=== PATIENT | female | born 1940 | race Caucasian/White ===

== ENCOUNTER 2024-07-16 06:33 | Day surgery (SDC) | payer MEDICARE, SELFPAY ==
[2024-07-16] VITALS (7 sets, daily range): BP systolic 120–152; BP diastolic 55–70; PULSE 73–92; RESP 12–19; TEMP 36.1–36.7; O2SAT 95–100; BMI 24.2
--- NOTE | 2024-07-16 | PATH_ITS ---
[facility] Accession Number: [id number] No. of containers..01 Tissue . 01 Material submitted: . toe - RIGHT 5th TOE MATERIAL . 01 Diagnosis: RIGHT FIFTH TOE MATERIAL, EXCISION: Granulomatous inflammation surrounding basophilic amorphous needle-like material deposition. See comment. MRV 07/18/2024 1524 Local . 01 Comment: Findings are suggestive of gout crystals, however, fresh tissue is needed for definite crystal identification. Clinical correlation is recommended. . 01 Electronically signed: . Marline Montes MD, Pathologist NPI- [id number] . 01 Gross description: . Received in formalin with two patient identifiers and right fifth toe material, is an unoriented ellipse of skin (1.7 x 0.7 x 0.2 cm), and multiple fragments of bone with attached soft tissue (2.2 x 1.7 x 0.3 cm in aggregate). The skin margins are inked blue, and the fragment of skin is serially sectioned into six slices. The specimen is submitted entirely as follows: . A1: Skin fragment tips. A2: Remaining skin fragment. A3: Fragment of bone following decalcification. ([id number]) /MRV 07/17/2024 1703 Local . 01 Pathologist provided ICD-10: M10.071 . 01 CPT . 548868, [id number] Specimen Comment: A courtesy copy of this report has been sent to [facility] Pathology Performed at: [address] [address], [place], [place] [id number] MD Zachary Angel MD Phone: [phone]
--- NOTE | 2024-07-16 | DI.RAD.S_ITS ---
PROCEDURE: XR FOOT RT MIN 3V INDICATIONS: POST OP FOOT TECHNIQUE: 3 views of the foot were acquired. COMPARISON: None. FINDINGS: Bones: 5th digit proximal phalanx subtotal osteotomy. No fractures or dislocations. No suspicious bony lesions. Soft tissues: No tibiotalar joint effusion. Achilles tendon appears normal. No radiopaque foreign body. IMPRESSION: 5th digit proximal phalanx subtotal osteotomy. Dictated by: Jamil Sharma M.D. on 07/16/2024 at 12:14 Approved by: Jamil Sharma M.D. on 07/16/2024 at 12:17
--- NOTE | 2024-07-16 05:57 | PM.PREOP ---
Pre-operative Note Interval Note History & Physical reviewed/Exam performed by Physician: Yes Changes to H&P: No
--- NOTE | 2024-07-16 05:58 | P.HP_ITS ---
History of Present Illness History of Present Illness [place] [facility] [place]: 83 year [place] female here for swollen right fifth toe. She expresses inability to take a decent walk due to discomfort in the toe joint. She describes the joint as being unhappy, bloated, and full of gouty material, which she likens to the appearance of toothpaste or cottage cheese. Ericka would like to proceed with elective surgery to address the issue. She has been informed about the importance of controlling her gout and uric acid levels to prevent recurrence of the issue, especially if the toe is preserved. Patient denies n/v/f/c/sob/cp. [facility] Medical History (Updated 07/12/24 @ 11:06 by Elo Lai RN) Gout Disorder of thyroid gland GERD (gastroesophageal reflux disease) Osteoporosis Arthritis HLD (hyperlipidemia) Kidney disorder HTN (hypertension) Anxiety and depression Meds Home Medications and Allergies Home Medications Medication Instructions Recorded Confirmed Type calcitriol 0.25 mcg capsule 0.25 mcg PO DAILY 07/12/24 07/12/24 History lisinopril 20 mg tablet 20 mg PO DAILY 07/12/24 07/12/24 History metronidazole 0.75 % topical cream 1 applic topical DAILY 07/12/24 07/12/24 History milnacipran 25 mg tablet (Savella) 25 mg PO DAILY 07/12/24 07/12/24 History simvastatin 20 mg tablet 20 mg PO ONCE PM 07/12/24 07/12/24 History Allergies Allergy/AdvReac Type Severity Reaction Status Date / Time codeine Allergy Verified 07/12/24 11:03 iodine Allergy Verified 07/12/24 11:03 Exam Skin Other: Right fifth toe: edematous and pre-ulcerative. Extrem Other: Right fifth toe: Mild tenderness on palpation and rigid hammertoe with bony enlargement. Assessment & Plan Assessment & Plan narrative: 1. 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 Right fifth toe acquired deformity. Patient seen and evaluated. Surgical plan: right fifth toe interphalangeal joint arthrotomy and correction of acquired deformity with possible amputation. Risks and benefits of the procedure discussed with all questions answered to patient's satisfaction. Reviewed potential complications that may include but not limited to the following: DVT, failure to resolve all symptoms, infection, nerve injury, bleeding, recurrence, or wound. Reviewed surgical technique and general aftercare protocols. All questions answered to patient's satisfaction with no guarantees made. Patient verbalized understanding and agreed with surgical plan. RTC for post-op. Time-Based Coding :: [TOTAL MINUTES] spent with patient and on the chart (including review of chart, obtaining history, exam, reviewing outside data, placing orders, documenting exam and treatment plan, and counseling patient) on [DATE].
[2024-07-16] MEDS: LACTATED RINGERS 1,000 ML 100 ML IV (07:34)
[2024-07-16] MEDS: CEFAZOLIN 2 GM/100 ML PREMIX 100 ML IV (08:00)
[2024-07-16] MEDS: ACETAMINOPHEN IV 1,000 MG/100 ML VIAL 400 MG IV (08:05)
--- NOTE | 2024-07-16 08:23 | SUR.OPER ---
Supine on padded OR bed, head on pillow, arms secured on padded arm boards at <90 degrees abduction, legs uncrossed, safety belt at thigh,bump under right hip, tape over blanket over lower non operative leg.
[2024-07-16] MEDS: SODIUM CHLORIDE IRRIG SOLUTION 3,000 ML, GENTAMICIN 240 MG IRR (08:34)
[2024-07-16] MEDS: LIDOCAINE 1% 20 ML INJ (08:36)
[2024-07-16] MEDS: BUPIVACAINE 0.25% (PF) VIAL 30 ML INJ (08:49)
[2024-07-16] MEDS: DEXAMETHASONE 4 MG/ML VIAL INJ (09:12)
[2024-07-16] MEDS: BACITRACIN OINT 0.9 GM PCKT 1 APPLIC TOP (09:12)
--- NOTE | 2024-07-17 21:31 | PM.OP.1 ---
Operative Date/Time/Diagnoses Date of procedure: 07/16/24 Pre-op diagnosis: 1. Right fifth toe osseus defect, tophaceous gout 2. Right fifth toe acquired deformity Post-op diagnosis: same Procedure & Clinicians Procedure: 1. Right fifth toe interphalangeal joint arthrotomy 2. Right fifth toe rotational arthroplasty Same procedure as scheduled: Yes Surgeon: Jase Belcher Click Yes if Unassisted: Yes Anesthesia Type: General Operative Notes Findings: Consistent with diagnosis Closure Type: primary Specimen(s): other (Right fifth toe soft tissue material) Estimated Blood Loss (mL): 15 Tourniquet time (min): 25 Procedure in detail: Patient was identified and transferred onto operating table from [facility] in supine position. General anesthesia was administered in operating room. Local block was injected to right fifth ray using 8 cc of 1% lidocaine plain. 18 inch ankle tourniquet was applied and inflated to 225 mmHg prior to incision then deflated prior to closure. Surgical limb was prepped and draped in the usual sterile fashion, followed by official timeout with surgical team all in agreement. Attention was directed right fifth toe. An elliptical incision was made from proximal lateral to distal medial over the proximal interphalangeal joint that enveloped the soft tissue mass secondary to tophaceous material. Dissection was deepened to the level of bone and joint, and more deposition of presumed monosodium urate crystals were found over the subcutaneous tissue, extensor and flexor tendons, and entire joint capsule, which were removed using a hemostat and a rongeur and sent to pathology for gross evaluation. Decision was made to excise the joint using TPS and sagittal saw. More pockets of the substance were uncovered and removed until sufficient to visualization. Surgical site was irrigated copiously using 3 liters of saline mixed with 240 mg of gentamicin then closed using 3-0 nylon and 4-0 nylon. Perfusion to toe was visualized after release of tourniquet. 3 cc of 1:1:1 1% lidocaine plain, 0.25 marcaine plain, and dexamethasone phosphate was administered to the toe. Incision site was covered with bacitarcin, Xeroform, and bulky sterile dressing. Surgical foot was placed in post-op shoe. Patient tolerated procedure without complication and was transferred to PACU with vital signs stable. Post-operative Condition: stable Disposition: same day surgery Plan for aftercare: NWB, elevate above heart, and ice behind knee to surgical limb
== END 2024-07-16 10:17 | disposition home or self-care (01) ==
PROVIDERS: PCP Family Medicine; Referring Provider Podiatrist Foot & Ankle Surgery; Visit Provider Podiatrist Foot & Ankle Surgery
PROC: (CPT 28024; principal; 2024-07-16 07:45)
DX: M20.5X1 Other deformities of toe(s) (acquired), right foot (principal); M89.771 Major osseous defect, right ankle and foot
CPT/HCPCS: 28024; 73630; J0134; J0690; J1100; J2405; J2704